=== PATIENT | female | born 1985 | race African-American/Black ===

== ENCOUNTER 2018-01-19 16:37 | Emergency (ER) | payer OTHER ==
[~2018-01-19] VITALS: Ht 162.6 cm; Wt 125.6 kg
[2018-01-19 16:54] VITALS: BP 147/74; Ht 162.6 cm; Wt 125.6 kg
== END 2018-01-19 18:18 | disposition home or self-care (01) ==
LOC: ED 16:37
DX: O26.892 Other specified pregnancy related conditions, second trimester (principal); R10.31 Right lower quadrant pain; R10.32 Left lower quadrant pain; E11.9 Type 2 diabetes mellitus without complications; J45.909 Unspecified asthma, uncomplicated; Z3A.22 22 weeks gestation of pregnancy; Z00.00 Encounter for general adult medical examination without abnormal findings